=== PATIENT | female | born 1985 | race Caucasian/White ===

== ENCOUNTER → 2016-07-22 | Outpatient (CLI) | payer SELFPAY | END | disposition home or self-care (01) | LOC: LABWHC1 14:24 | PROVIDERS: ATTEND Nurse Practitioner | DX: E07.89 Other specified disorders of thyroid (principal) | CPT/HCPCS: 36415; 84439; 84443 ==

== ENCOUNTER → 2016-07-23 | Outpatient (CLI) | payer SELFPAY ==
--- NOTE | 2016-07-24 20:21 | US ---
EXAMINATION TYPE: US thyroid st tissue head/neck DATE OF EXAM: 07/23/2016 5:11 PM COMPARISON: NONE CLINICAL HISTORY: 31-year-old female E07.89 Other specified disorders of thyroid. TECHNIQUE: Multiple sonographic images of the thyroid gland are obtained. FINDINGS: GLAND SIZE: Right Lobe: 6.6 x 1.2 x 2.3 cm Overall Parenchyma: heterogenous Left Lobe: 5.9 x 1.4 x 2.1 cm Overall Parenchyma: heterogeneous Isthmus Thickness: 0.7 cm NODULES RIGHT: # of nodules measured on right: 1 1. 0.8 X 0.5 x 0.8 cm cyst at the lower pole with well-defined margins. Prior size: no prior LEFT: # of nodules measured on left: 0 ISTHMUS: # of nodules measured in the isthmus: 0 Bilateral neck scanned, no evidence of lymphadenopathy. IMPRESSION: Thyromegaly with diffuse glandular heterogeneity. Correlate for goiter or diffuse thyroiditis. There is an 8 mm cyst on the right without additional nodules.
== END | disposition home or self-care (01) ==
LOC: RADUSWWP 16:56
PROVIDERS: ATTEND Family Medicine
DX: E01.0 Iodine-deficiency related diffuse (endemic) goiter (principal)
CPT/HCPCS: 76536

== ENCOUNTER → 2017-05-20 | Outpatient (CLI) | payer BC ==
--- NOTE | 2017-05-20 12:58 | US ---
EXAMINATION TYPE: US thyroid st tissue head/neck DATE OF EXAM: 05/20/2017 COMPARISON: NONE CLINICAL HISTORY: E03.9 hypothyroidism, E07.89 disorder of thyroid. follow up exam, on meds GLAND SIZE: Right Lobe: 4.1 x 2.5 x 2.0 cm Overall Parenchyma: heterogenous Left Lobe: 5.6 x 1.8 x 2.0 cm Overall Parenchyma: heterogeneous Isthmus Thickness: 0.9 cm NODULES RIGHT: # of nodules measured on right: 1 1. 0.8 x 0.7 x 0.6cm hypoechoic mixed nodule at the lower pole with well-defined margins. This nodu le is taller than wide and shows no intranodular vascularity. Prior size: 0.8 x 0.5 x 0.8cm LEFT: # of nodules measured on left: 0 ISTHMUS: # of nodules measured in the isthmus: 0 Bilateral neck scanned, no evidence of lymphadenopathy. Background thyroid echotexture is diffusely heterogenous. IMPRESSION: Overall stability of an 8mm right thyroid nodule in an enlarged and diffusely heterogenous thyroid gl and. Again correlate with serum laboratory values to evaluate for thyroiditis or goiter.
== END | disposition home or self-care (01) ==
LOC: RADUSWWP 12:30
PROVIDERS: ATTEND Family Medicine
DX: E04.1 Nontoxic single thyroid nodule (principal); E03.9 Hypothyroidism, unspecified
CPT/HCPCS: 76536

== ENCOUNTER 2019-05-26 14:11 | Emergency (ER) | payer BC ==
[2019-05-26] MEDS ORDERED: KETOROLAC 30 MG/ML 1 ML VIAL IVP STA (14:58)
[2019-05-26] MEDS ORDERED: ONDANSETRON 4 MG/2 ML VIAL IVP STA (14:58)
[2019-05-26] MEDS ORDERED: SODIUM CHLORIDE 0.9% 1,000 ML IV STA (14:58)
--- NOTE | 2019-05-26 15:01 | ED ---
General Adult HPI - General Chief complaint: Recheck/Abnormal Lab/Rx Stated complaint: High Blood Pressure Time Seen by Provider: 05/26/19 14:22 Source: patient Mode of arrival: ambulatory Limitations: no limitations - History of Present Illness Initial comments: Dictation was produced using [employer] dictation software. please excuse any grammatical, word or spelling errors. Chief Complaint: 34-year-old female sent here from urgent care for hypertension and headache. History of Present Illness: 34-year-old female she has been having a headache for approximately one week. Patient has history of headaches. She went to the urgent care today where she was evaluated she was told to come to the emergency department because they were worried she was having an aneurysm. Patient states the headache starts in her left trapezius and travels up her neck up around the top of her head to her left forehead. Patient has any focal neurologic deficits. she reports that her headache is mild. Patient has been because her had a vasectomy. She did report that she does have some vision changes however she attributes it to her glasses. The ROS documented in this emergency department record has been reviewed and confirmed by me. Those systems with pertinent positive or negative responses have been documented in the HPI. All other systems are other negative and/or noncontributory. PHYSICAL EXAM: General Impression: Alert and oriented x3, not in acute distress HEENT: Normocephalic atraumatic, extra-ocular movements intact, pupils equal and reactive to light bilaterally, mucous membranes moist. Cardiovascular: Heart regular rate and rhythm, S1&S2 audible, no murmurs, rubs or gallops Chest: Lungs clear to auscultation bilaterally, no rhonchi, no wheeze, no rales Abdomen: Bowel sounds present, abdomen soft, non-tender, non-distended, no organomegaly Musculoskeletal: Pulses present and equal in all extremities, no peripheral edema Motor: no focal deficits noted Neurological: CN II-XII grossly intact, no focal motor or sensory deficits noted Skin: Intact with no visualized rashes Psych: Normal affect and mood ED course: 34-year-old female presents with chief complaint of hypertension. Her blood pressure on arrival was 153/97, rest of vital signs within acceptable limits. Patient's well-appearing. She has no focal neurologic deficits. Patient's hypertension is mild. Her hypertension is likely secondary to headache. Patient given headache cocktail. EKGs benign. Patient given headache cocktail reevaluated bedside finally stable medical condition. There are no concerns for hypertensive emergency. Patient states her headaches are still persistent. Given patient's age and risk factors there is concern for pseudotumor cerebri given her age, body habitus and clinical presentation. Numb er puncture was attempted at bedside and was not successful. Anesthesiology was called and will attempt lumbar puncture. Lumbar puncture was performed successfully by anesthesia. Patient had an opening pressure of 20. Pseudotumor cerebri is unlikely. CSF was visualized grossly without any gross abnormalities. Some of the CSF was sent off for evaluation. Patient be discharged. She is told to follow-up with primary care physician. Patient told to call back for follow-up of CSF results in approximately 48 hours. Patient given referral to neurology. EKG interpretation: Ventricular rate 105, sinus tachycardia,. 126, QRS 80, QTc 436. No WI prolongation, no QTC prolongation, no ST or T-wave changes noted. Overall, this EKG is unremarkable - Related Data Home Medications Medication Instructions Recorded Confirmed Ibuprofen [Motrin Ib] 400 mg PO Q8H PRN 05/26/19 05/26/19 Levothyroxine Sodium [Synthroid] 100 mcg PO DAILY 05/26/19 05/26/19 Allergies Allergy/AdvReac Type Severity Reaction Status Date / Time codeine Allergy Unknown Verified 05/26/19 15:17 meperidine [From Demerol] Allergy Unknown Verified 05/26/19 15:17 Review of Systems ROS Statement: Those systems with pertinent positive or pertinent negative responses have been documented in the HPI. ROS Other: All systems not noted in ROS Statement are negative. Past Medical History Past Medical History: Thyroid Disorder History of Any Multi-Drug Resistant Organisms: None Reported Past Surgical History: Appendectomy, Cholecystectomy Past Psychological History: Depression Smoking Status: Never smoker Past Alcohol Use History: None Reported Past Drug Use History: None Reported General Exam Limitations: no limitations Course Vital Signs 05/26/19 05/26/19 14:19 16:51 Temperature 97.8 F Pulse Rate 104 H 86 Respiratory 16 20 Rate Blood Pressure 153/97 141/93 O2 Sat by Pulse 99 99 Oximetry Medical Decision Making - Lab Data Result diagrams: 05/26/19 14:48 Lab Results 05/26/19 05/26/19 Range/Units 14:48 14:48 Sodium 137 (137-145) mmol/L Potassium 4.3 (3.5-5.1) mmol/L Chloride 103 (98-107) mmol/L Carbon Dioxide 25 (22-30) mmol/L Anion Gap 9 mmol/L BUN 9 (7-17) mg/dL Creatinine 0.59 (0.52-1.04) mg/dL Est GFR (CKD-EPI)AfAm >90 (>60 ml/min/1.73 sqM) Est GFR (CKD-EPI)NonAf >90 (>60 ml/min/1.73 sqM) Glucose 115 H (74-99) mg/dL Calcium 9.4 (8.4-10.2) mg/dL Urine HCG, Qual Not Detected (Not Detectd) Disposition Clinical Impression: Headache Disposition: HOME SELF-CARE Condition: Good Instructions (If sedation given, give patient instructions): Acute Headache (DC), Hypertension (ED) Is patient prescribed a controlled substance at d/c from ED?: No Referrals: Celso oLfton MD [Primary Care Provider] - 1-2 days Berry Alvares MD [STAFF PHYSICIAN] - 1-2 days Time of Disposition: 15:48
[2019-05-26 15:07] LABS: African American GFR (CKD) >90 (>60 ml/min/1.73 sqM); Anion Gap 9 mmol/L; Blood Urea Nitrogen 9 mg/dL (7-17); Calcium 9.4 mg/dL (8.4-10.2); Carbon Dioxide 25 mmol/L (22-30); Chloride 103 mmol/L (98-107); Glucose 115 mg/dL (74-99); Non-African American GFR(CKD) >90 (>60 ml/min/1.73 sqM); Potassium 4.3 mmol/L (3.5-5.1); Sodium 137 mmol/L (137-145)
[2019-05-26] MEDS ORDERED: DEXAMETHASONE SOD PHOSPHATE 10 MG/ML 1 ML VIAL IV STA (15:53)
--- NOTE | 2019-05-26 16:50 | CT ---
EXAMINATION TYPE: CT brain wo con DATE OF EXAM: 05/26/2019 COMPARISON: None INDICATION: Headache, LT back side x1 week, elevated BP. DLP: 1096.4 mGycm, Automated exposure control for dose reduction was used. CONTRAST: None CT of the brain is performed utilizing 3 mm thick sections through the posterior fossa and 3 mm thick sections through the remaining calvarium. Study is performed within 24 hours of arrival to the hosp ital. No abnormal hyperdensity is present to suggest an acute intracranial hemorrhage. No mass lesion is evident. No acute infarcts are evident. Ventricles and sulci are appropriate for the patient age. Paranasal sinuses and mastoid air cells within the [id number] are clear. IMPRESSIONS: 1. Normal CT Brain
[2019-05-26] MEDS ORDERED: LORazepam 2 MG/ML INJ IV STA (17:52)
--- NOTE | 2019-05-26 18:28 | P.PCN ---
Date of Procedure: 05/26/19 Procedure(s) Performed: Preoperative diagnosis: Headache. Post operative diagnoses: Headache Procedure= lumbar puncture Anesthesia local infiltration with lidocaine 1% 2 mL. Condition: stable Complication: none. Indication for the procedure= 34 is FEMALE with a history of headaches she came to the emergency room [facility], and a diagnostic lumbar puncture was requested by the emergency room physician. Description of the procedure procedure risk and benefits discussed with the patient , consent signed. Patient and the emergency room ,placed in lateral position back prepped with chlorhexidine 3 times been local infiltration of the skin and subcutaneous tissue with lidocaine 1% 2 mL for skin and subcu interstitial frustrations at L4 5 levels then 22-gauge Quincke-type needle advanced slowly at L4- 5 interlaminar space there was positive cerebrospinal fluid which was clear, no heme, no paresthesia ,total of 4ML of clear cerebrospinal fluid collected , then the needle removed and a Band-Aid applied and patient tolerated the procedure well without any complications. Opening pressure= 20 Cm .
[2019-05-26 18:42] LABS: Glucose,CSF 51 mg/dL (40-70); Total Protein,CSF 40 mg/dL (12-60)
[2019-05-26 18:58] VITALS: BP 151/99; PULSE 90; RESP 16; TEMP 98.3
[2019-05-26 19:10] LABS: Appearance,CSF Clear; CSF Tube Number 1; CSF Tube Volume 2; Nucleated Cells, CSF 0 u/L (0-5); Red Blood Cell,CSF 371 u/L (0-10)
[2019-05-26 19:11] LABS: Red Blood Cell, CSF Crenated 25 %; Red Blood Cell, CSF Fresh 75 %
== END 2019-05-26 19:05 | disposition home or self-care (01) ==
LOC: EC 14:11
DX: I10 Essential (primary) hypertension (principal); R51 Headache; R00.0 Tachycardia, unspecified; E07.9 Disorder of thyroid, unspecified; Z79.890 Hormone replacement therapy; Z90.49 Acquired absence of other specified parts of digestive tract; Z88.5 Allergy status to narcotic agent
CPT/HCPCS: 99284; 62270; 96374; 96375 ×3; 96361; 36415; 93005; 84157; 80048; 82945; 89050; 81025; 87070; 87205; 70450; J2060; J1100; J2405; J1885

== ENCOUNTER 2020-02-18 01:11 | Emergency (ER) | payer BC ==
[2020-02-18] MEDS ORDERED: ACETAMINOPHEN TAB 500 MG TAB PO STA (01:42)
[2020-02-18] MEDS ORDERED: LORazepam 2 MG/ML INJ IV STA (01:43)
[2020-02-18] MEDS ORDERED: SODIUM CHLORIDE 0.9% 1,000 ML IV ONE (01:43)
--- NOTE | 2020-02-18 01:46 | ED ---
General Adult HPI - General Chief complaint: Shortness of Breath Stated complaint: SOB Time Seen by Provider: 02/18/20 01:29 Source: patient, RN notes reviewed, old records reviewed Mode of arrival: ambulatory Limitations: no limitations - History of Present Illness Initial comments: Patient is a 34-year-old female who presents emergency department today with complaints of cough difficulty breathing and chest pain. 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 She reports that she was tested on for the exposure but at that time had no symptoms. She reports that throughout the day today she's had some episodes of diarrhea and progressive shortness of breath and chest discomfort. She also has underlying history of anxiety which is making symptoms worse. Patient states that she has had no Motrin or Tylenol today. She does report she is a former smoker 14 years ago. Pt Does have a history of asthma. - Related Data Home Medications Medication Instructions Recorded Confirmed Ibuprofen [Motrin Ib] 400 mg PO Q8H PRN 05/26/19 05/26/19 Levothyroxine Sodium [Synthroid] 100 mcg PO DAILY 05/26/19 05/26/19 Previous Rx's Medication Instructions Recorded Albuterol Inhaler [Ventolin Hfa 1 puff INHALATION RT-QID #1 inhaler 02/18/20 Inhaler] LORazepam [Ativan] 0.5 mg PO BID 3 Days #6 tab 02/18/20 Allergies Allergy/AdvReac Type Severity Reaction Status Date / Time codeine Allergy Unknown Verified 02/18/20 01:23 meperidine [From Demerol] Allergy Unknown Verified 02/18/20 01:23 Review of Systems ROS Statement: Those systems with pertinent positive or pertinent negative responses have been documented in the HPI. ROS Other: All systems not noted in ROS Statement are negative. Past Medical History Past Medical History: Hypertension, Thyroid Disorder History of Any Multi-Drug Resistant Organisms: None Reported Past Surgical History: Appendectomy, Cholecystectomy Past Psychological History: Anxiety, Depression Smoking Status: Never smoker Past Alcohol Use History: Occasional Past Drug Use History: None Reported General Exam - General Exam Comments Initial Comments: 34-year-old female. Alert and oriented. Anxious. Limitations: no limitations General appearance: alert, anxious Head exam: Present: atraumatic, normocephalic, normal inspection Eye exam: Present: normal appearance, PERRL, EOMI. Absent: scleral icterus, conjunctival injection, periorbital swelling ENT exam: Present: normal exam, mucous membranes moist Neck exam: Present: normal inspection. Absent: tenderness, meningismus, lymphadenopathy Respiratory exam: Present: normal lung sounds bilaterally. Absent: respiratory distress, wheezes, rales, rhonchi, stridor Cardiovascular Exam: Present: regular rate, normal rhythm, normal heart sounds. Absent: systolic murmur, diastolic murmur, rubs, gallop, clicks GI/Abdominal exam: Present: soft, normal bowel sounds. Absent: distended, tenderness, guarding, rebound, rigid Neurological exam: Present: alert, oriented X3, CN II-XII intact Psychiatric exam: Present: normal affect, normal mood Skin exam: Present: warm, dry, intact, normal color. Absent: rash Course Vital Signs 02/18/20 02/18/20 02/18/20 01:15 02:23 02:26 Temperature 98.4 F Pulse Rate 112 H 88 Respiratory 22 16 16 Rate Blood Pressure 175/105 O2 Sat by Pulse 98 97 Oximetry 02/18/20 03:00 Temperature Pulse Rate 92 Respiratory 18 Rate Blood Pressure 160/89 O2 Sat by Pulse 98 Oximetry EKG Findings - EKG Comments: EKG Findings:: EKG shows normal sinus rhythm. Possible left atrial enlargement. Borderline EKG. Ventricular rate of 93 bpm. Intervals 146 most seconds. QRS duration is 86 ms. QT QTc is 356/442 ms. Medical Decision Making - Medical Decision Making Patient's a 34-year-old female presents emergency room today with complaints of shortness of breath chest discomfort as well as anxiety today. Patient reports that she was exposed to Anne virus 6 days ago. She was tested on . She was asymptomatic at that time. She does complain of symptoms starting today as well as sinus pressure. Patient was given IV fluids labwork obtained. Normal d-dimer and inflammatory markers. Chest x-ray was negative for acute process. Patient's vital signs are stable oxygen saturation 9899% on room air. Discussed using inhaler for symptoms as well as discussed coping mechanisms to do with anxiety. Patient was given 1 mg of Ativan does report improvement of symptoms. I discussed the Patient needs to self quarantine with suspected coronavirus infection and to return if there is any worsening signs or symptoms. I discussed purchasing pulse oximeter and affect low pulse ox to properly return to the ER. Patient understands treatment plan will comply. - Lab Data Result diagrams: 02/18/20 01:49 02/18/20 01:49 Lab Results 02/18/20 02/18/20 02/18/20 Range/Units 01:49 01:49 01:49 WBC 13.5 H (3.8-10.6) k/uL RBC 5.15 (3.80-5.40) m/uL Hgb 15.7 (11.4-16.0) gm/dL Hct 45.0 (34.0-46.0) % MCV 87.4 (80.0-100.0) fL MCH 30.6 (25.0-35.0) pg MCHC 35.0 (31.0-37.0) g/dL RDW 11.6 (11.5-15.5) % Plt Count 350 (150-450) k/uL MPV 6.3 Neutrophils % 83 % Lymphocytes % 10 % Monocytes % 3 % Eosinophils % 2 % Basophils % 1 % Neutrophils # 11.2 H (1.3-7.7) k/uL Lymphocytes # 1.4 (1.0-4.8) k/uL Monocytes # 0.5 (0-1.0) k/uL Eosinophils # 0.3 (0-0.7) k/uL Basophils # 0.1 (0-0.2) k/uL PT 10.1 (9.0-12.0) sec INR 1.0 (<1.2) APTT 25.9 (22.0-30.0) sec D-Dimer 0.34 (<0.60) mg/L FEU Sodium 137 (137-145) mmol/L Potassium 4.0 (3.5-5.1) mmol/L Chloride 104 (98-107) mmol/L Carbon Dioxide 23 (22-30) mmol/L Anion Gap 10 mmol/L BUN 7 (7-17) mg/dL Creatinine 0.64 (0.52-1.04) mg/dL Est GFR (CKD-EPI)AfAm >90 (>60 ml/min/1.73 sqM) Est GFR (CKD-EPI)NonAf >90 (>60 ml/min/1.73 sqM) Glucose 113 H (74-99) mg/dL Plasma Lactic Acid Lane (0.7-2.0) mmol/L Calcium 10.0 (8.4-10.2) mg/dL Magnesium 1.9 (1.6-2.3) mg/dL Total Bilirubin 0.6 (0.2-1.3) mg/dL AST 28 (14-36) U/L ALT 40 H (4-34) U/L Alkaline Phosphatase 92 (38-126) U/L Lactate Dehydrogenase 524 (313-618) U/L C-Reactive Protein 12.9 H (<10.0) mg/L Total Protein 8.2 (6.3-8.2) g/dL Albumin 4.6 (3.5-5.0) g/dL 02/18/20 Range/Units 01:49 WBC (3.8-10.6) k/uL RBC (3.80-5.40) m/uL Hgb (11.4-16.0) gm/dL Hct (34.0-46.0) % MCV (80.0-100.0) fL MCH (25.0-35.0) pg MCHC (31.0-37.0) g/dL RDW (11.5-15.5) % Plt Count (150-450) k/uL MPV Neutrophils % % Lymphocytes % % Monocytes % % Eosinophils % % Basophils % % Neutrophils # (1.3-7.7) k/uL Lymphocytes # (1.0-4.8) k/uL Monocytes # (0-1.0) k/uL Eosinophils # (0-0.7) k/uL Basophils # (0-0.2) k/uL PT (9.0-12.0) sec INR (<1.2) APTT (22.0-30.0) sec D-Dimer (<0.60) mg/L FEU Sodium (137-145) mmol/L Potassium (3.5-5.1) mmol/L Chloride (98-107) mmol/L Carbon Dioxide (22-30) mmol/L Anion Gap mmol/L BUN (7-17) mg/dL Creatinine (0.52-1.04) mg/dL Est GFR (CKD-EPI)AfAm (>60 ml/min/1.73 sqM) Est GFR (CKD-EPI)NonAf (>60 ml/min/1.73 sqM) Glucose (74-99) mg/dL Plasma Lactic Acid Lane 0.8 (0.7-2.0) mmol/L Calcium (8.4-10.2) mg/dL Magnesium (1.6-2.3) mg/dL Total Bilirubin (0.2-1.3) mg/dL AST (14-36) U/L ALT (4-34) U/L Alkaline Phosphatase (38-126) U/L Lactate Dehydrogenase (313-618) U/L C-Reactive Protein (<10.0) mg/L Total Protein (6.3-8.2) g/dL Albumin (3.5-5.0) g/dL - Radiology Data Radiology results: report reviewed Dermal chest x-ray. Disposition Clinical Impression: Suspected COVID-19 virus infection, Anxiety Disposition: HOME SELF-CARE Condition: Good Instructions (If sedation given, give patient instructions): Viral Syndrome (ED), Generalized Anxiety Disorder (ED) Additional Instructions: Patient was using inhaler as necessary for shortness of breath. Take Motrin Tylenol for headache or fever. Rest, remain hydrated. Patient should've plenty of vitamin C and vitamin D. Patient should purchase pulse oximeter and use at home. If a low pulse ox below 93% to return to the ER for reevaluation. I advised due to use anxiety medication only as needed for severe panic attacks. Return to the emergency department if any alarming signs or symptoms occur. Patient should quarantine for milder especially with immunocompromised and elderly people for the next 2 weeks. Prescriptions: LORazepam [Ativan] 0.5 mg PO BID 3 Days #6 tab Albuterol Inhaler [Ventolin Hfa Inhaler] 1 puff INHALATION RT-QID #1 inhaler Is patient prescribed a controlled substance at d/c from ED?: No Referrals: Celso Lofton MD [Primary Care Provider] - 1-2 days Time of Disposition: 03:32
--- NOTE | 2020-02-18 02:28 | XR ---
EXAM: XR Chest, 1 View CLINICAL HISTORY: ITS.REASON XR Reason: Suspected COVID-19 pneumonia TECHNIQUE: Frontal view of the chest. COMPARISON: No previous study. FINDINGS: Lungs: The lungs are well aerated. Pleural space: No pleural effusions. No pneumothorax. Heart: Cardiomediastinal silhouette unremarkable. Mediastinum: See above. Bones/joints: The ribs are grossly unremarkable. IMPRESSION: No active disease.
[2020-02-18] MEDS ORDERED: ALBUTEROL HFA INHALER INHALATION STA (02:35)
[2020-02-18 02:44] LABS: Basophils # (A) 0.1 k/uL (0-0.2); Basophils % (A) 1 %; Eosinophils # (A) 0.3 k/uL (0-0.7); Eosinophils % (A) 2 %; HGB 15.7 gm/dL (11.4-16.0); Lymphocytes # (A) 1.4 k/uL (1.0-4.8); Lymphocytes % (A) 10 %; MCH 30.6 pg (25.0-35.0); MCV 87.4 fL (80.0-100.0); Mean Platelet Volume 6.3; Monocytes # (A) 0.5 k/uL (0-1.0); Monocytes % (A) 3 %; Neutrophils # (A) 11.2 k/uL (1.3-7.7); Neutrophils % (A) 83 %; Platelet Count 350 k/uL (150-450); RBC 5.15 m/uL (3.80-5.40); RDW 11.6 % (11.5-15.5); WBC 13.5 k/uL (3.8-10.6)
[2020-02-18 02:54] LABS: ALT 40 U/L (4-34); AST 28 U/L (14-36); African American GFR (CKD) >90 (>60 ml/min/1.73 sqM); Albumin 4.6 g/dL (3.5-5.0); Alkaline Phosphatase 92 U/L (38-126); Anion Gap 10 mmol/L; Blood Urea Nitrogen 7 mg/dL (7-17); C Reactive Protein 12.9 mg/L (<10.0); Carbon Dioxide 23 mmol/L (22-30); Chloride 104 mmol/L (98-107); D-Dimer 0.34 mg/L FEU (<0.60); Glucose 113 mg/dL (74-99); LDH 524 U/L (313-618); Magnesium 1.9 mg/dL (1.6-2.3); Non-African American GFR(CKD) >90 (>60 ml/min/1.73 sqM); Partial Thromboplastin Time 25.9 sec (22.0-30.0); Prothrombin Time 10.1 sec (9.0-12.0); Sodium 137 mmol/L (137-145); Total Bilirubin 0.6 mg/dL (0.2-1.3); Total Protein 8.2 g/dL (6.3-8.2)
[2020-02-18 03:07] VITALS: RESP 18
[2020-02-18 04:10] VITALS: BP 148/95; PULSE 77; TEMP 98.5
[2020-02-18 10:38] LABS: Ferritin 60.8 ng/mL (10.0-291.0)
== END 2020-02-18 04:10 | disposition home or self-care (01) ==
LOC: EC 01:11
DX: R06.00 Dyspnea, unspecified (principal); R07.9 Chest pain, unspecified; R05 Cough; J45.909 Unspecified asthma, uncomplicated; E07.9 Disorder of thyroid, unspecified; Z79.890 Hormone replacement therapy; Z88.5 Allergy status to narcotic agent; Z87.891 Personal history of nicotine dependence; F41.9 Anxiety disorder, unspecified; Z20.828 Contact with and (suspected) exposure to other viral communicable diseases
CPT/HCPCS: 36415; 94640; 93005; 85379; 80053; 82728; 83605; 83615; 83735; 85025; 85610; 85730; 86140; 87040; 84145; 71045; 99285; 96374; 96361; J2060

== ENCOUNTER 2021-08-28 01:29 | Emergency (ER) | payer BC ==
[2021-08-28 01:34] VITALS: BP 161/103; PULSE 85; RESP 20; TEMP 98
--- NOTE | 2021-08-28 01:54 | XR ---
EXAMINATION TYPE: XR foot complete LT DATE OF EXAM: 08/28/2021 COMPARISON: NONE HISTORY: Foot pain TECHNIQUE: 3 views FINDINGS: There is transverse fracture across the base of the fifth metatarsal. There is no significa nt displacement. The toes are intact. Hindfoot is intact. IMPRESSION: Acute nondisplaced fracture at the base of the fifth metatarsal.
--- NOTE | 2021-08-28 01:56 | XR ---
EXAMINATION TYPE: XR ankle complete LT DATE OF EXAM: 08/28/2021 COMPARISON: NONE HISTORY: Trauma. Pain TECHNIQUE: 3 views FINDINGS: Ankle mortise is anatomic. I see no fracture nor dislocation of the ankle. Joint spaces are normal. There is a nondisplaced transverse fracture across the base of the fifth metatarsal. IMPRESSION: No ankle fracture seen. There is a fifth metatarsal base fracture.
[2021-08-28] MEDS ORDERED: MORPHINE SULFATE 4 MG/ML SYRINGE IM STA (02:23)
[2021-08-28] MEDS ORDERED: KETOROLAC 15 MG/ML 1 ML VIAL IM STA (02:23)
[2021-08-28] MEDS ORDERED: diphenhydrAMINE ELIXIR 25 MG/10 ML CUP PO STA (02:24)
[2021-08-28] MEDS ORDERED: ACET/COD 300 MG/30 MG STARTER PACK 6 TAB BTL PO STA (03:20)
--- NOTE | 2021-08-28 03:24 | ED ---
Lower Extremity Injury HPI - General Chief Complaint: Extremity Injury, Lower Stated Complaint: LT foot injury Time Seen by Provider: 08/28/21 02:17 Source: patient, RN notes reviewed Mode of arrival: wheelchair Limitations: no limitations - History of Present Illness Initial Comments: This is a pleasant 36-year-old female who twisted her left foot when she jumped up after being frightened by a spider. She complaining of pain to the lateral aspect of the foot which is exacerbated by palpation and attempted ambulation. Pain is sharp. No other injuries. No headache, no fever or chills, no changes in vision or hearing, no sore throat or difficulty with speech, no neck pain, no chest pain or shortness of breath, no abdominal pain, no nausea or vomiting, no changes in urination or bowel movements, no numbness or tingling, no skin rashes or lesions. MD Complaint: foot injury - Related Data Home Medications Medication Instructions Recorded Confirmed Ibuprofen [Motrin Ib] 400 mg PO Q8H PRN 05/26/19 05/26/19 Levothyroxine Sodium [Synthroid] 100 mcg PO DAILY 05/26/19 05/26/19 Previous Rx's Medication Instructions Recorded Albuterol Inhaler [Ventolin Hfa 1 puff INHALATION RT-QID #1 inhaler 02/18/20 Inhaler] LORazepam [Ativan] 0.5 mg PO BID 3 Days #6 tab 02/18/20 Acetaminophen [Tylenol] 500 mg PO Q4-6H PRN #24 tab 08/28/21 Ibuprofen [Motrin] 600 mg PO Q8HR PRN #30 tab 08/28/21 Allergies Allergy/AdvReac Type Severity Reaction Status Date / Time codeine Allergy Unknown Verified 08/28/21 01:34 meperidine [From Demerol] Allergy Unknown Verified 08/28/21 01:34 Review of Systems ROS Statement: Those systems with pertinent positive or pertinent negative responses have been documented in the HPI. ROS Other: All systems not noted in ROS Statement are negative. Past Medical History Past Medical History: Hypertension, Thyroid Disorder Additional Past Medical History / Comment(s): Hashimotos History of Any Multi-Drug Resistant Organisms: None Reported Past Surgical History: Appendectomy, Cholecystectomy Past Psychological History: Anxiety, Depression Smoking Status: Never smoker Past Alcohol Use History: Occasional Past Drug Use History: None Reported General Exam Limitations: no limitations General appearance: alert, in distress Head exam: Present: atraumatic, normocephalic, normal inspection Eye exam: Present: normal appearance, EOMI Neck exam: Present: normal inspection, full ROM. Absent: tenderness, meningismus, lymphadenopathy Respiratory exam: Present: normal lung sounds bilaterally. Absent: respiratory distress, wheezes, rales, rhonchi, stridor Cardiovascular Exam: Present: regular rate, normal rhythm, normal heart sounds. Absent: systolic murmur, diastolic murmur, rubs, gallop, clicks Extremities exam: Present: tenderness (Patient has tenderness to the proximal aspect of the fifth metatarsal. No break in skin integrity. Pedal pulses are intact. Capillary refill is less than 2 seconds. No other tenderness.), normal capillary refill Back exam: Present: normal inspection Neurological exam: Present: alert, oriented X3, CN II-XII intact Psychiatric exam: Present: normal affect, normal mood Skin exam: Present: warm, dry, intact, normal color. Absent: rash Course Vital Signs 08/28/21 01:30 Temperature 98 F Pulse Rate 85 Respiratory 20 Rate Blood Pressure 161/103 O2 Sat by Pulse 99 Oximetry Procedures - Orthopedic Splinting/Casting Injury #1 Side: left Lower Extremity Injury Location: short leg Lower Extremity Immobilizer: posterior splint, Louie wrap, plaster cast Other Orthopedic Equipment: crutches Additional Comments: Neurovascular status intact both pre-and post-application Medical Decision Making - Medical Decision Making Patient has a proximal fifth metatarsal fracture which is nondisplaced, consistent with a pseudo-Sharma fracture. Patient placed in a short leg posterior mold, crutches, orthopedic follow-up, counseled the patient splint care. Counseled patient on signs and symptoms of compartment syndrome. Patient was told to return to the ER for any signs or symptoms worsen. Told to return immediately if any other problems arise. All questions answered. Treatment plan discussed. Patient in agreement Every effort has been made to ensure accuracy of this dictation. However, due to the limitations of electronic medical records and dictation devices, errors in charting still occur. The case was discussed in detail with ED attending physician. Presentation, findings, treatment plan discussed in detail. Pull Tab [employer]er Dr. Putnam - Radiology Data Radiology results: report reviewed, image reviewed Disposition Clinical Impression: Nondisplaced fracture of fifth left metatarsal bone, Elevated blood pressure reading Narrative: Proximal fifth metatarsal fracture left Disposition: HOME SELF-CARE Condition: Good Instructions (If sedation given, give patient instructions): Crutch Instructions (ED), Foot Fracture in Adults (ED), Splint Care (ED), Hypertension (ED) Additional Instructions: Call at 8 AM to schedule appointment with the orthopedic physician. Elevate the injury when possible. Apply ice 20 minutes on and off for times daily. Do not keep the splinting material wet. Leave the splint on until follow-up with the orthopedic doctor. Your blood pressure is elevated which may be secondary to pain. However recheck with your regular doctor regarding this. Return to the ER immediately if any symptoms worsen, new symptoms arise, or any other problems develop. Prescriptions: Ibuprofen [Motrin] 600 mg PO Q8HR PRN #30 tab PRN Reason: Pain Acetaminophen [Tylenol] 500 mg PO Q4-6H PRN #24 tab PRN Reason: Pain Is patient prescribed a controlled substance at d/c from ED?: No Referrals: Pelon Hood DO [Doctor of Osteopathic Medicine] - 08/31/21 Time of Disposition: 03:23
== END 2021-08-28 03:42 | disposition home or self-care (01) ==
LOC: EC 01:29
DX: S92.355A Nondisplaced fracture of fifth metatarsal bone, left foot, initial encounter for closed fracture (principal); E07.9 Disorder of thyroid, unspecified; R03.0 Elevated blood-pressure reading, without diagnosis of hypertension; Z79.1 Long term (current) use of non-steroidal anti-inflammatories (NSAID); Z88.5 Allergy status to narcotic agent; X50.1XXA Overexertion from prolonged static or awkward postures, initial encounter
CPT/HCPCS: 73610; 73630; 29515; 99283; 96372; J2270; J1885

== ENCOUNTER 2022-03-18 03:54 | Emergency (ER) | payer BC ==
[2022-03-18 04:00] VITALS: TEMP 97.8
[2022-03-18] MEDS ORDERED: FAMOTIDINE 20 MG/2 ML VIAL IV STA (04:35)
[2022-03-18 04:36] VITALS: BP 150/98; PULSE 82; RESP 16
[2022-03-18] MEDS ORDERED: MAG HYDROX/AL HYDROX/SIMETH 30 ML, HYOSCYAMINE ELIXIR 10 ML, LIDOCAINE VISCOUS 2% 10 ML PO STA ×3 (04:36)
[2022-03-18 04:47] LABS: Basophils # (A) 0.1 k/uL (0-0.2); Basophils % (A) 1 %; Eosinophils # (A) 0.3 k/uL (0-0.7); Eosinophils % (A) 3 %; HCT 40.6 % (34.0-46.0); HGB 14.2 gm/dL (11.4-16.0); Lymphocytes # (A) 1.8 k/uL (1.0-4.8); Lymphocytes % (A) 21 %; MCH 30.4 pg (25.0-35.0); MCV 86.7 fL (80.0-100.0); Mean Platelet Volume 7.4; Monocytes # (A) 0.5 k/uL (0-1.0); Monocytes % (A) 6 %; Neutrophils # (A) 5.8 k/uL (1.3-7.7); Neutrophils % (A) 67 %; Platelet Count 329 k/uL (150-450); RBC 4.69 m/uL (3.80-5.40); RDW 12.2 % (11.5-15.5); WBC 8.7 k/uL (3.8-10.6)
[2022-03-18 05:21] LABS: ALT 39 U/L (4-34); AST 31 U/L (14-36); African American GFR (CKD) >90 (>60 ml/min/1.73 sqM); Albumin 4.1 g/dL (3.5-5.0); Alkaline Phosphatase 74 U/L (38-126); Anion Gap 8 mmol/L; Blood Urea Nitrogen 10 mg/dL (7-17); Calcium 9.1 mg/dL (8.4-10.2); Carbon Dioxide 24 mmol/L (22-30); Chloride 106 mmol/L (98-107); Glucose 104 mg/dL (74-99); Lipase 193 U/L (23-300); Non-African American GFR(CKD) >90 (>60 ml/min/1.73 sqM); Potassium 4.1 mmol/L (3.5-5.1); Sodium 138 mmol/L (137-145); Total Bilirubin 0.5 mg/dL (0.2-1.3); Total Protein 7.1 g/dL (6.3-8.2)
--- NOTE | 2022-03-18 05:23 | XR ---
EXAMINATION TYPE: XR chest 2V DATE OF EXAM: 03/18/2022 COMPARISON: Chest x-ray February 18, 2020 HISTORY: Chest pain. TECHNIQUE: Frontal and lateral views of the chest are obtained. FINDINGS: There is no suspicious focal air space opacity, pleural effusion, or pneumothorax seen. T he cardiac silhouette size is stable and within normal limits. The osseous structures are intact. IMPRESSION: No acute process. No significant change from prior.
--- NOTE | 2022-03-18 06:15 | ED ---
General Adult HPI - General Chief complaint: Chest Pain Stated complaint: Chest Pressure Time Seen by Provider: 03/18/22 03:58 Source: patient Mode of arrival: ambulatory Limitations: no limitations - History of Present Illness Initial comments: This is a 37-year-old female that presents emergency department for epigastric burning. The patient stated that this morning woke her up out of sleep at around 2:30 in the morning. The patient explained that the burning is in the epigastric radiating to the right upper quadrant. The patient did state that she disorder episodes of this 3-4 months ago where she was diagnosed with peptic ulcer disease. The patient was given medications however had not taken any medications at home. The patient stated that she had some mild nausea with this pain but stated that the burning was consistent since she woke up. The patient denied having any late-night meals and stated that her last meal was at 3 PM yesterday. The patient denied any other acute pain or complaints at this time. The patient denied any nausea, vomiting, fevers and chills currently. - Related Data Home Medications Medication Instructions Recorded Confirmed Ibuprofen [Motrin Ib] 400 mg PO Q8H PRN 05/26/19 05/26/19 Levothyroxine Sodium [Synthroid] 100 mcg PO DAILY 05/26/19 05/26/19 Previous Rx's Medication Instructions Recorded Albuterol Inhaler [Ventolin Hfa 1 puff INHALATION RT-QID #1 inhaler 02/18/20 Inhaler] LORazepam [Ativan] 0.5 mg PO BID 3 Days #6 tab 02/18/20 Acetaminophen [Tylenol] 500 mg PO Q4-6H PRN #24 tab 08/28/21 Ibuprofen [Motrin] 600 mg PO Q8HR PRN #30 tab 08/28/21 Famotidine [Pepcid] 20 mg PO BID #60 tablet 03/18/22 Allergies Allergy/AdvReac Type Severity Reaction Status Date / Time codeine Allergy Unknown Verified 03/18/22 04:00 meperidine [From Demerol] Allergy Unknown Verified 03/18/22 04:00 Review of Systems ROS Statement: Those systems with pertinent positive or pertinent negative responses have been documented in the HPI. ROS Other: All systems not noted in ROS Statement are negative. Past Medical History Past Medical History: Hypertension, Thyroid Disorder Additional Past Medical History / Comment(s): Hashimotos History of Any Multi-Drug Resistant Organisms: None Reported Past Surgical History: Appendectomy, Cholecystectomy Past Psychological History: Anxiety, Depression Smoking Status: Never smoker Past Alcohol Use History: Occasional Past Drug Use History: None Reported General Exam Limitations: no limitations General appearance: alert, in no apparent distress Head exam: Present: atraumatic, normocephalic Eye exam: Present: normal appearance, PERRL Pupils: Present: normal accommodation ENT exam: Present: normal exam, normal oropharynx, mucous membranes moist Neck exam: Present: normal inspection, full ROM Respiratory exam: Present: normal lung sounds bilaterally Cardiovascular Exam: Present: regular rate, normal rhythm, normal heart sounds GI/Abdominal exam: Present: soft, tenderness (Minor tenderness of patient to the epigastric region), normal bowel sounds Extremities exam: Present: normal inspection, full ROM Back exam: Present: normal inspection, full ROM Neurological exam: Present: alert, oriented X3, CN II-XII intact Psychiatric exam: Present: normal affect, normal mood Skin exam: Present: warm, dry Course Vital Signs 03/18/22 03/18/22 03:56 04:32 Temperature 97.8 F Pulse Rate 102 H 82 Pulse Rate [ 82 Apical] Respiratory 22 16 Rate Blood Pressure 156/97 150/98 O2 Sat by Pulse 100 98 Oximetry EKG Findings - EKG Comments: EKG Findings:: An EKG was obtained and was interpreted by myself. EKG showed a rate of 84, MO interval 160, QRS duration 92 and QTC of 399. This EKG was normal sinus rhythm with no ST segment elevations or depressions noted. Medical Decision Making - Medical Decision Making Was pt. sent in by a medical professional or institution? @No Did you speak to anyone other than the patient for history? @No Did you review nursing and triage notes? @Triage notes were reviewed Were old charts reviewed? @None Differential Diagnosis? @ACS, peptic ulcer disease, gastrenteritis EKG interpreted by me (3pts min.)? @As above X-rays interpreted by me (1pt min.)? @ [none] CT interpreted by me (1pt min.)? @ [none] U/S interpreted by me (1pt. min.)? @ [none] What testing was considered but not performed? (CT, X-rays, U/S, labs)? Why? @An acute abdominal series x-ray versus computed tomography scan were considered at this time however the patient had symptoms consistent with peptic ulcer dis ease versus GERD therefore no further imaging was needed at this time. What meds were considered but not given? Why? @ [none] Did you discuss the management of the patient with other professionals? @None Did you reconcile home meds? @ [none] Was smoking cessation discussed for >3mins.? @ [none] Was critical care preformed (if so, how long)? @ [none] Were there social determinants of health that impacted care today? How? (Homelessness, low income, unemployed, alcoholism, drug addiction, transp ortation, low edu. Level, literacy, decrease access to med. care, [facility], rehab)? @None Was there de-escalation of care discussed even if they declined? (Discuss DNR or withdrawal of care, Hospice)? @No What co-morbidities impacted this encounter? (DM, HTN, Smoking, COPD, CAD, Cancer, CVA, Hep., AIDS, mental health diagnosis, sleep apnea, morbid obesity)? @None Was patient admitted / discharged? @The patient was seen and evaluated. Due to the nature the patient's com plaints, laboratory workup was obtained. All laboratory workup was within normal limits and the patient was likely not suffering from any ACS-related pain. The patient did receive a GI cocktail as well as Pepcid through her IV. On reevaluation, the patient did state that her pain was mildly improved and with this improvement secondary to her negative workup, the patient was likely suffering from GERD. The patient was given a prescription for Pepcid and was told to take Maalox at home. The patient was also given omeprazole as a previous prescription and she was advised to continue to take this. The patient was also advised to follow-up with her primary care physician for further workup and evaluation. The patient was discharged home in stable condition. Undiagnosed new problem with uncertain prognosis? @ [none] Drug Therapy requiring intensive monitoring for toxicity (Heparin, Nitro, Insulin, Cardizem)? @ [none] Were any procedures done? @ [none] Diagnosis/symptom? @Epigastric abdominal pain, secondary to GERD Acute, or Chronic, or Acute on Chronic? @Acute on chronic Uncomplicated (without systemic symptoms) or Complicated (systemic symptoms)? @Uncomplicated Side effects of treatment? @ [none] Exacerbation, Progression, or Severe Exacerbation] @ [no] Poses a threat to life or bodily function? @ [no] - Lab Data Result diagrams: 03/18/22 04:30 03/18/22 04:30 Lab Results 03/18/22 03/18/22 03/18/22 Range/Units 04:30 04:30 04:30 WBC 8.7 (3.8-10.6) k/uL RBC 4.69 (3.80-5.40) m/uL Hgb 14.2 (11.4-16.0) gm/dL Hct 40.6 (34.0-46.0) % MCV 86.7 (80.0-100.0) fL MCH 30.4 (25.0-35.0) pg MCHC 35.0 (31.0-37.0) g/dL RDW 12.2 (11.5-15.5) % Plt Count 329 (150-450) k/uL MPV 7.4 Neutrophils % 67 % Lymphocytes % 21 % Monocytes % 6 % Eosinophils % 3 % Basophils % 1 % Neutrophils # 5.8 (1.3-7.7) k/uL Lymphocytes # 1.8 (1.0-4.8) k/uL Monocytes # 0.5 (0-1.0) k/uL Eosinophils # 0.3 (0-0.7) k/uL Basophils # 0.1 (0-0.2) k/uL Sodium 138 (137-145) mmol/L Potassium 4.1 (3.5-5.1) mmol/L Chloride 106 (98-107) mmol/L Carbon Dioxide 24 (22-30) mmol/L Anion Gap 8 mmol/L BUN 10 (7-17) mg/dL Creatinine 0.59 (0.52-1.04) mg/dL Est GFR (CKD-EPI)AfAm >90 (>60 ml/min/1.73 sqM) Est GFR (CKD-EPI)NonAf >90 (>60 ml/min/1.73 sqM) Glucose 104 H (74-99) mg/dL Calcium 9.1 (8.4-10.2) mg/dL Magnesium 2.0 (1.6-2.3) mg/dL Total Bilirubin 0.5 (0.2-1.3) mg/dL AST 31 (14-36) U/L ALT 39 H (4-34) U/L Alkaline Phosphatase 74 (38-126) U/L Troponin I <0.012 (0.000-0.034) ng/mL Total Protein 7.1 (6.3-8.2) g/dL Albumin 4.1 (3.5-5.0) g/dL Lipase 193 (23-300) U/L Disposition Clinical Impression: GERD (gastroesophageal reflux disease) Disposition: HOME SELF-CARE Condition: Stable Instructions (If sedation given, give patient instructions): GERD (Gastroesophageal Reflux Disease) (DC) Prescriptions: Famotidine [Pepcid] 20 mg PO BID #60 tablet Is patient prescribed a controlled substance at d/c from ED?: No Referrals: Hilary Whaley [Primary Care Provider] - 1-2 days Time of Disposition: 06:10
== END 2022-03-18 06:31 | disposition home or self-care (01) ==
LOC: EC 03:54
DX: K21.9 Gastro-esophageal reflux disease without esophagitis (principal); I10 Essential (primary) hypertension; E07.9 Disorder of thyroid, unspecified; F41.9 Anxiety disorder, unspecified; F32.A Depression, unspecified; Z79.890 Hormone replacement therapy; Z79.899 Other long term (current) drug therapy; Z88.5 Allergy status to narcotic agent
CPT/HCPCS: 36415; 71046; 80053; 83690; 83735; 84484; 85025; 93005; 96374; 99285

== ENCOUNTER 2022-07-01 16:45 | Emergency (ER) | payer BC ==
[2022-07-01 16:58] VITALS: RESP 20; TEMP 98.5
[2022-07-01] MEDS ORDERED: LORazepam 2 MG/ML INJ IV STA (17:15)
[2022-07-01] MEDS ORDERED: SODIUM CHLORIDE 0.9% 1,000 ML IV STA (17:15)
[2022-07-01] MEDS ORDERED: FAMOTIDINE 20 MG/2 ML VIAL IV STA (17:15)
[2022-07-01] MEDS ORDERED: ASPIRIN 81 MG PO STA (17:15)
--- NOTE | 2022-07-01 17:22 | ED ---
General Adult HPI - General Chief complaint: Chest Pain Stated complaint: pressure in chest Time Seen by Provider: 07/01/22 17:05 Source: patient, RN notes reviewed, old records reviewed Mode of arrival: ambulatory Limitations: no limitations - History of Present Illness Initial comments: Nontoxic-appearing 37-year-old female presents anxious and tearful complaining of chest pain for the past 5 days. Patient states that she woke up in a panic with increased heart rate and chest pain. Symptoms are worse when she tries to go to sleep. 3 days ago she did try a marijuana gummy with no relief. States seen her primary care doctor today who recommended she follow up with her bundle tier and labeler. Patient states she called the bundle tier and labeler's office was not able to get in so she came to the emergency room. She was seen with similar pain in February but states it is much worse this week. Denies any fevers, no nausea vomiting or diarrhea. Does state she has constipation. Denies any alcohol or tobacco use. States does have family history of dad having heart attack and open heart surgery, mother with hypertension, grandpa of cardiac arrest 40. -: days(s) (5) Location: chest Radiation: extremity (left shoulder) Severity scale (1-10): 4 Quality: constant Improves with: none Worsens with: other (when she tries to sleep) Treatments Prior to Arrival: other (marijuana gummy 3 days ago) - Related Data Home Medications Medication Instructions Recorded Confirmed Ibuprofen [Motrin Ib] 400 mg PO Q8H PRN 05/26/19 05/26/19 Levothyroxine Sodium [Synthroid] 100 mcg PO DAILY 05/26/19 05/26/19 Previous Rx's Medication Instructions Recorded Albuterol Inhaler [Ventolin Hfa 1 puff INHALATION RT-QID #1 inhaler 02/18/20 Inhaler] LORazepam [Ativan] 0.5 mg PO BID 3 Days #6 tab 02/18/20 Acetaminophen [Tylenol] 500 mg PO Q4-6H PRN #24 tab 08/28/21 Ibuprofen [Motrin] 600 mg PO Q8HR PRN #30 tab 08/28/21 Famotidine [Pepcid] 20 mg PO BID #60 tablet 03/18/22 hydrOXYzine HCL [Atarax] 50 mg PO QID #30 tablet 07/01/22 Allergies Allergy/AdvReac Type Severity Reaction Status Date / Time codeine Allergy Unknown Verified 07/01/22 16:58 meperidine [From Demerol] Allergy Unknown Verified 07/01/22 16:58 Review of Systems ROS Statement: Those systems with pertinent positive or pertinent negative responses have been documented in the HPI. ROS Other: All systems not noted in ROS Statement are negative. Past Medical History Past Medical History: Hypertension, Thyroid Disorder Additional Past Medical History / Comment(s): Hashimotos History of Any Multi-Drug Resistant Organisms: None Reported Past Surgical History: Appendectomy, Cholecystectomy Past Psychological History: Anxiety, Depression Smoking Status: Never smoker Past Alcohol Use History: Occasional Past Drug Use History: Marijuana General Exam Limitations: no limitations General appearance: alert, in no apparent distress Head exam: Present: atraumatic, normocephalic Eye exam: Absent: scleral icterus, conjunctival injection, periorbital swelling, periorbital tenderness ENT exam: Present: normal oropharynx, mucous membranes moist Expanded Mouth exam: Present: normal external inspection, tongue normal, tongue elevat ion. Absent: drooling, trismus, muffled voice Throat exam: negative: tonsillomegaly, R peritonsillar mass, L peritonsillar mass Neck exam: Present: full ROM. Absent: tenderness, meningismus Respiratory exam: Present: normal lung sounds bilaterally. Absent: respiratory distress, accessory muscle use Cardiovascular Exam: Present: tachycardia GI/Abdominal exam: Present: soft. Absent: distended, tenderness, guarding, rigid Extremities exam: Present: normal capillary refill. Absent: tenderness, pedal edema Back exam: Absent: tenderness, CVA tenderness (R), CVA tenderness (L), rash noted Neurological exam: Present: alert, oriented X3 Psychiatric exam: Present: anxious Skin exam: Present: warm, dry, normal color. Absent: cyanosis, diaphoretic, petechiae, pallor Course Vital Signs 07/01/22 16:55 Temperature 98.5 F Pulse Rate 103 H Respiratory 20 Rate Blood Pressure 176/100 O2 Sat by Pulse 100 Oximetry EKG Findings - EKG Results: EKG: sinus rhythm (Ventricular rate 91, MI interval 0.146, QRS 0.90, QTC 0.397; normal axis) Medical Decision Making - Medical Decision Making EKG shows sinus rhythm with a ventricular rate of 91, MI interval 0.146, QRS 0.90, QTC 0.7. No acute changes compared to old 03/18/2022. Chest x-ray interpreted by me shows no evidence of focal consolidation, trachea is midline. Cardiac silhouette within normal size. Radiologist interpretation no acute process no significant change from previous. CBC without evidence of leukocytosis and hemoglobin and hematocrit are stable. D-dimer is negative at 0.38, troponin is negative. Electrolytes are unremarkable. TSH 2.0. Heart score low. Patient does have history of anxiety and has been here on Ativan in the past. She states that she did try marijuana gummy for her symptoms 3 days ago which did not help. She was encouraged to stop using marijuana. This may be anxiety vs atypical chest pain. She was prescribed hydroxyzine for her anxiety and directed to follow up with her primary care doctor who she seen today and her bundle tier and labeler as recommended by her primary care doctor. She is agreeable to discharge. Discharged home with family. Vital signs are stable. Case discussed with Dr. Putnam Was pt. sent in by a medical professional or institution (, PA, DENTAL FLOSS PACKER, urgent care, hospital, or penitentiary...) When possible be specific @ -No Did you speak to anyone other than the patient for history (EMS, parent, family, police, friend...)? What history was obtained from this source @ -No Did you review nursing and triage notes (agree or disagree)? Why? @ -I reviewed and agree with nursing and triage notes Were old charts reviewed (outside hosp., previous admission, EMS record, old EKG, old radiological studies, urgent care reports/EKG's, penitentiary records)? Report findings @ -Previous EKG report Differential Diagnosis (chest pain, altered mental status, abdominal pain women, abdominal pain men, vaginal bleeding, weakness, fever, dyspnea, syncope, headache, dizziness, GI bleed, back pain, seizure, CVA, palpatations, mental health, musculoskeletal)? @ -Differential Chest Pain: Stable Angina, Unstable Angina, STEMI, NSTEMI Aortic Dissection, Pneumothorax, Musculoskeletal, Esophageal Spasm GERD, Cholecystitis, Pancreatitis, Zoster, this is not meant to be an all-inclusive list. EKG interpreted by me (3pts min.). @ -As above X-rays interpreted by me (1pt min.). @ -Yes as above CT interpreted by me (1pt min.). @ -None done U/S interpreted by me (1pt. min.). @ -None done What testing was considered but not performed or refused? (CT, X-rays, U/S, labs)? Why? @ -None What meds were considered but not given or refused? Why? @ -None Did you discuss the management of the patient with other professionals (professionals i.e. DrInocencia, PA, DENTAL FLOSS PACKER, lab, RT, psych nurse, pediatric social worker, marine drafter, teacher, chief security officer, shoe caser)? Give summary @ -No Was smoking cessation discussed for >3mins.? @ -No Was critical care preformed (if so, how long)? @ -No Were there social determinants of health that impacted care today? How? (Homelessness, low income, unemployed, alcoholism, drug addiction, transportation, low edu. Level, literacy, decrease access to med. care, snf, rehab)? @ -No Was there de-escalation of care discussed even if they declined (Discuss DNR or withdrawal of care, Hospice)? DNR status @ -No What co-morbidities impacted this encounter? (DM, HTN, Smoking, COPD, CAD, Cancer, CVA, ARF, Chemo, Hep., AIDS, mental health diagnosis, sleep apnea, morbid obesity)? @ -Anxiety, obesity, hypertension, hypothyroid Was patient admitted / discharged? Hospital course, mention meds given and route, prescriptions, significant lab abnormalities, going to OR and other pertinent info. @ -Discharged Undiagnosed new problem with uncertain prognosis? @ -No Drug Therapy requiring intensive monitoring for toxicity (Heparin, Nitro, Insulin, Cardizem)? @ -No Were any procedures done? @ -No Diagnosis/symptom? @ -Atypical chest pain, anxiety Acute, or Chronic, or Acute on Chronic? @ -Acute Uncomplicated (without systemic symptoms) or Complicated (systemic symptoms)? @ -default Side effects of treatment? @ -No Exacerbation, Progression, or Severe Exacerbation? @ -No Poses a threat to life or bodily function? How? (Chest pain, USA, PA, pneumonia, PE, COPD, DKA, ARF, appy, cholecystitis, CVA, Diverticulitis, Homicidal, Danica cidal, threat to staff... and all critical care pts) @ -No - Lab Data Result diagrams: 07/01/22 17:45 07/01/22 17:45 Lab Results 07/01/22 07/01/22 07/01/22 Range/Units 17:45 17:45 17:45 WBC 10.4 (3.8-10.6) k/uL RBC 4.82 (3.80-5.40) m/uL Hgb 14.5 (11.4-16.0) gm/dL Hct 42.3 (34.0-46.0) % MCV 87.6 (80.0-100.0) fL MCH 30.1 (25.0-35.0) pg MCHC 34.3 (31.0-37.0) g/dL RDW 12.0 (11.5-15.5) % Plt Count 350 (150-450) k/uL MPV 6.6 Neutrophils % 79 % Lymphocytes % 12 % Monocytes % 5 % Eosinophils % 2 % Basophils % 0 % Neutrophils # 8.2 H (1.3-7.7) k/uL Lymphocytes # 1.3 (1.0-4.8) k/uL Monocytes # 0.6 (0-1.0) k/uL Eosinophils # 0.2 (0-0.7) k/uL Basophils # 0.0 (0-0.2) k/uL D-Dimer 0.38 (<0.60) mg/L FEU Sodium 140 (137-145) mmol/L Potassium 3.7 (3.5-5.1) mmol/L Chloride 104 (98-107) mmol/L Carbon Dioxide 27 (22-30) mmol/L Anion Gap 9 mmol/L BUN 8 (7-17) mg/dL Creatinine 0.57 (0.52-1.04) mg/dL Est GFR (CKD-EPI)AfAm >90 (>60 ml/min/1.73 sqM) Est GFR (CKD-EPI)NonAf >90 (>60 ml/min/1.73 sqM) Glucose 116 H (74-99) mg/dL Calcium 9.5 (8.4-10.2) mg/dL Magnesium 2.1 (1.6-2.3) mg/dL Total Bilirubin 0.4 (0.2-1.3) mg/dL AST 32 (14-36) U/L ALT 62 H (4-34) U/L Alkaline Phosphatase 80 (38-126) U/L Troponin I (0.000-0.034) ng/mL Total Protein 7.9 (6.3-8.2) g/dL Albumin 4.5 (3.5-5.0) g/dL TSH 2.000 (0.465-4.680) mIU/L 07/01/22 Range/Units 17:45 WBC (3.8-10.6) k/uL RBC (3.80-5.40) m/uL Hgb (11.4-16.0) gm/dL Hct (34.0-46.0) % MCV (80.0-100.0) fL MCH (25.0-35.0) pg MCHC (31.0-37.0) g/dL RDW (11.5-15.5) % Plt Count (150-450) k/uL MPV Neutrophils % % Lymphocytes % % Monocytes % % Eosinophils % % Basophils % % Neutrophils # (1.3-7.7) k/uL Lymphocytes # (1.0-4.8) k/uL Monocytes # (0-1.0) k/uL Eosinophils # (0-0.7) k/uL Basophils # (0-0.2) k/uL D-Dimer (<0.60) mg/L FEU Sodium (137-145) mmol/L Potassium (3.5-5.1) mmol/L Chloride (98-107) mmol/L Carbon Dioxide (22-30) mmol/L Anion Gap mmol/L BUN (7-17) mg/dL Creatinine (0.52-1.04) mg/dL Est GFR (CKD-EPI)AfAm (>60 ml/min/1.73 sqM) Est GFR (CKD-EPI)NonAf (>60 ml/min/1.73 sqM) Glucose (74-99) mg/dL Calcium (8.4-10.2) mg/dL Magnesium (1.6-2.3) mg/dL Total Bilirubin (0.2-1.3) mg/dL AST (14-36) U/L ALT (4-34) U/L Alkaline Phosphatase (38-126) U/L Troponin I <0.012 (0.000-0.034) ng/mL Total Protein (6.3-8.2) g/dL Albumin (3.5-5.0) g/dL TSH (0.465-4.680) mIU/L Disposition Clinical Impression: Atypical chest pain, Anxiety Disposition: HOME SELF-CARE Condition: Good Instructions (If sedation given, give patient instructions): Chest Pain (ED), Anxiety (ED) Additional Instructions: Take the hydroxyzine as prescribed. Do not use any marijuana products. Follow- up with your primary care doctor and bundle tier and labeler next week. Return to the emergency room with any new or concerning symptoms. Prescriptions: hydrOXYzine HCL [Atarax] 50 mg PO QID #30 tablet Is patient prescribed a controlled substance at d/c from ED?: No Referrals: Hilary Whaley [Primary Care Provider] - 1-2 days Time of Disposition: 19:23
[2022-07-01 17:53] LABS: Basophils % (A) 0 %; Eosinophils # (A) 0.2 k/uL (0-0.7); Eosinophils % (A) 2 %; HCT 42.3 % (34.0-46.0); HGB 14.5 gm/dL (11.4-16.0); Lymphocytes # (A) 1.3 k/uL (1.0-4.8); Lymphocytes % (A) 12 %; MCH 30.1 pg (25.0-35.0); MCHC 34.3 g/dL (31.0-37.0); MCV 87.6 fL (80.0-100.0); Mean Platelet Volume 6.6; Monocytes # (A) 0.6 k/uL (0-1.0); Monocytes % (A) 5 %; Neutrophils # (A) 8.2 k/uL (1.3-7.7); Neutrophils % (A) 79 %; Platelet Count 350 k/uL (150-450); RBC 4.82 m/uL (3.80-5.40); WBC 10.4 k/uL (3.8-10.6)
[2022-07-01 18:23] LABS: ALT 62 U/L (4-34); AST 32 U/L (14-36); African American GFR (CKD) >90 (>60 ml/min/1.73 sqM); Albumin 4.5 g/dL (3.5-5.0); Alkaline Phosphatase 80 U/L (38-126); Anion Gap 9 mmol/L; Blood Urea Nitrogen 8 mg/dL (7-17); Calcium 9.5 mg/dL (8.4-10.2); Carbon Dioxide 27 mmol/L (22-30); Chloride 104 mmol/L (98-107); Glucose 116 mg/dL (74-99); Magnesium 2.1 mg/dL (1.6-2.3); Non-African American GFR(CKD) >90 (>60 ml/min/1.73 sqM); Potassium 3.7 mmol/L (3.5-5.1); Sodium 140 mmol/L (137-145); Total Bilirubin 0.4 mg/dL (0.2-1.3); Total Protein 7.9 g/dL (6.3-8.2)
--- NOTE | 2022-07-01 18:27 | XR ---
EXAMINATION TYPE: XR chest 2V DATE OF EXAM: 07/01/2022 COMPARISON: Chest x-ray March 18, 2022 HISTORY: Chest pain. TECHNIQUE: Frontal and lateral views of the chest are obtained. FINDINGS: There is no suspicious focal air space opacity, pleural effusion, or pneumothorax seen. T he cardiac silhouette size is stable and within normal limits. Cholecystectomy clips are seen. The osseous structures are intact. IMPRESSION: No acute process. No significant change from prior.
[2022-07-01 19:42] VITALS: BP 170/100; PULSE 90
== END 2022-07-01 19:43 | disposition home or self-care (01) ==
LOC: EC 16:45
DX: R07.89 Other chest pain (principal); F41.9 Anxiety disorder, unspecified; I10 Essential (primary) hypertension; E07.9 Disorder of thyroid, unspecified; F32.A Depression, unspecified; F12.90 Cannabis use, unspecified, uncomplicated; Z79.890 Hormone replacement therapy; Z88.5 Allergy status to narcotic agent
CPT/HCPCS: 36415; 93005; 85379; 80053; 84443; 83735; 84484; 85025; 71046; 99285; 96374; 96375; 96361 ×2; J2060